=== PATIENT | male | born 1990 | race Two or more races ===

== ENCOUNTER 2021-04-13 12:15 | Emergency (ER) | payer OTHER ==
[~2021-04-13] VITALS: Ht 182.9 cm; Wt 102.1 kg
[2021-04-13 12:40] VITALS: BP 143/92
[2021-04-13] MEDS ORDERED: FAMOTIDINE 20 MG TABLET ONE (12:54)
[2021-04-13] MEDS ORDERED: DIPHENHYDRAMINE 25 MG CAPSULE ONE (12:55)
[2021-04-13] MEDS ORDERED: PLEASE ENTER HEIGHT AND WEIGHT MC SCH (13:00)
[2021-04-13] MEDS ORDERED: PLEASE ENTER ALLERGIES MC SCH (13:00)
[2021-04-13] MEDS ORDERED: FAMOTIDINE 20 MG TABLET PO ONE (13:00)
[2021-04-13] MEDS ORDERED: DIPHENHYDRAMINE 25 MG CAPSULE PO ONE (13:00)
--- NOTE | 2021-04-13 14:14 | NUR ---
Patient given discharge instructions and Rx, they have confirmed that they understand the instructions. Patient ambulatory with steady gait. NAD, all questions answered appropriately, denies additional needs at this time. No personal belongings left in room after discharge.
== END 2021-04-13 14:15 | disposition home or self-care (01) ==
LOC: ED 13:23
DX: T78.40XA Allergy, unspecified, initial encounter (principal); X58.XXXA Exposure to other specified factors, initial encounter
CPT/HCPCS: 99283; Q0163